=== PATIENT | male | born 1960 | race Caucasian/White ===

== ENCOUNTER 2021-08-13 00:20 | Emergency (ER) | payer BC ==
[~2021-08-13] VITALS: Ht 177.8 cm; Wt 90.7 kg
[2021-08-13] MEDS ORDERED: SULF1TAB48 PO (01:29)
[2021-08-13] MEDS ORDERED: CEPH500T PO (01:29)
[2021-08-13 01:30] VITALS: BP 142/82
[2021-08-13] MEDS ORDERED: SULFAMETH/TRIMETH 800/160 MG 1 UDTAB TABLET PO ONE (01:30)
[2021-08-13] MEDS ORDERED: CEPHALEXIN MONOHYDRATE 500 MG CAPSULE PO ONE ×2 (01:30→01:36)
[2021-08-13] MEDS ORDERED: SULFAMETH/TRIMETH 800/160 MG 1 UDTAB TABLET ONE (01:33)
--- NOTE | 2021-08-13 01:37 | NUR ---
Patient discharged to home in stable condition. Written and verbal after care instructions given. Patient verbalizes understanding of instruction. RX given
== END 2021-08-13 01:38 | disposition home or self-care (01) ==
LOC: ER 00:32
DX: S20.361A Insect bite (nonvenomous) of right front wall of thorax, initial encounter (principal); L03.313 Cellulitis of chest wall; Z79.899 Other long term (current) drug therapy; W57.XXXA Bitten or stung by nonvenomous insect and other nonvenomous arthropods, initial encounter; Y93.89 Activity, other specified; Y92.89 Other specified places as the place of occurrence of the external cause; Y99.8 Other external cause status